=== PATIENT | female | born 1955 | race Caucasian/White ===

== ENCOUNTER 2020-07-07 11:25 | Outpatient (CLI) | payer MEDICARE, OTHER ==
--- NOTE | 2020-07-09 13:16 | Mammography Report ---
BILATERAL DIGITAL DIAGNOSTIC MAMMOGRAM 3D/2D: 07/07/2020 CLINICAL: Baseline exam. Occasional right breast pain. Baseline exam. No prior exams were available for comparison. There are scattered fibroglandular [place] ents in both breasts. No mass in the right breast in the region of intermittent pain. There are loosely grouped dystrophic appearing and punctate calcifications in the left breast at 12 o 'clock middle depth. These are seen in additional views. No other significant masses, calcifications, or other findings are seen in either breast. IMPRESSION: INCOMPLETE: NEEDS ADDITIONAL IMAGING EVALUATION 1) No mass in the right breast in the region of intermittent pain. -A targeted ultrasound is recommended and will immediately follow. 2) The grouped dystrophic punctate calcifications in the left breast are probably benign. -A follow-up mammogram in 6 months is recommended. This exam was interpreted at Station ID: [id number]. NOTE: For mammograms, a report in lay terms will be sent to the patient. Approximately 15% of breast malignancies will not be visualized mammographically. In the management of a palpable breast mass, a negative mammogram must not discourage biopsy of a clinically suspicious lesion. Electronically Signed By: Wallace Schulz M.D. slc/:07/07/2020 13:03:22 ACR BI-RADS Category 0: Incomplete 3340F PARENCHYMAL PATTERN: (A) - The breast(s) demonstrate(s) scattered fibroglandular densities. BI-RADS CATEGORY: (0) - 0 Ultrasound [id number] Immediate follow-up LATERALITY: (B)
--- NOTE | 2020-07-09 13:16 | Ultrasound Report ---
LIMITED ULTRASOUND OF RIGHT BREAST AND AXILLA: 07/07/2020 CLINICAL: Occasional right breast pain. Comparison is made to exam dated: 07/07/2020 mammogram - [facility]. Real-time ultrasound of the right breast upper outer quadrant, retroareolar, and axilla regions was p erformed. Caceres scale images of the real-time examination were reviewed. No significant abnormalities were seen sonographically in the right breast retroareolar or upper oute r quadrant in the region of intermittent pain. Patient denies pain at this time. No significant abnormalities were seen sonographically in the right axilla. IMPRESSION: PROBABLY BENIGN No sonographic evidence of malignancy. No significant findings in the regions of intermittent pain in the right breat. Exam findings were conveyed to the patient. Patient is advised to monitor for significant change. Cli nical follow-up as needed. Mammogram demonstrated probably benign calcifications in the left breast. A follow-up left mammogram in 6 months is recommended to demonstrate stability of the calcifications. This exam was interpreted at Station ID: [id number]. Electronically Signed By: Wallace Schulz M.D. slc/:07/07/2020 13:08:25 Ultrasound BI-RADS: 3 Probably benign BI-RADS CATEGORY: (3) - 3 Mammogram [id number] 6 month follow-up LATERALITY: (L)
== END 2020-07-07 11:26 | disposition home or self-care (01) ==
LOC: DI 11:25
PROVIDERS: ATTEND Physician Assistant
DX: N64.4 Mastodynia (principal)
CPT/HCPCS: 76642; 77066

== ENCOUNTER 2021-03-01 11:27 | Outpatient (CLI) | payer MEDICARE ==
--- NOTE | 2021-03-02 15:13 | Mammography Report ---
UNILATERAL LEFT DIGITAL DIAGNOSTIC MAMMOGRAM 3D/2D: 03/01/2021 CLINICAL: Patient returns for 6 month follow up on left breast for calcifications. Comparison is made to exams dated: 07/07/2020 ultrasound and 07/07/2020 mammogram - [facility]. There are scattered fibroglandular elements in left breast. There are grouped fine and dystrophic calcifications in the left breast at 12 o'clock middle depth. These are stable to even less prominent. No other significant masses or calcifications are seen in the breast. IMPRESSION: PROBABLY BENIGN The calcifications in the left breast are not significantly changed and probably benign. A follow-up mammogram with magnification views in 6 months is recommended to demonstrate stability. The patient will be due for bilateral mammograms at that same visit. Findings and recommendations were conveyed to the patient at time of exam. This exam was interpreted at Station ID: [id number]. NOTE: For mammograms, a report in lay terms will be sent to the patient. Approximately 15% of breast malignancies will not be visualized mammographically. In the management of a palpable breast mass, a negative mammogram must not discourage biopsy of a clinically suspicious lesion. Electronically Signed By: Claribel rodriguez/:03/01/2021 12:31:34 ACR BI-RADS Category 3: Probably benign 3343F PARENCHYMAL PATTERN: (A) - The breast(s) demonstrate(s) scattered fibroglandular densities. BI-RADS CATEGORY: (3) - 3 Mammogram [id number] 6 month follow-up LATERALITY: (B)
== END 2021-03-01 11:28 | disposition home or self-care (01) ==
LOC: DI 11:27
PROVIDERS: ATTEND Physician Assistant
DX: R92.8 Other abnormal and inconclusive findings on diagnostic imaging of breast (principal)

== ENCOUNTER 2022-06-19 13:35 | Outpatient (CLI) | payer MEDICARE ==
--- NOTE | 2022-06-19 17:05 | XRAY Report ---
PROCEDURE: Foot 3 View LT INDICATIONS: L HEEL PX TECHNIQUE: 3 views of the foot were acquired. COMPARISON: None FINDINGS: Bones: No fractures or dislocations. No suspicious bony lesions. Small plantar calcaneal spur pres ent Soft tissues: No tibiotalar joint effusion. Achilles tendon appears normal. IMPRESSION: Small calcaneal spur. Otherwise unremarkable. Reviewed by: John Haddad MD on 06/19/2022 4:04 PM [facility] Approved by: John Haddad MD on 06/19/2022 4:04 PM [facility] Station ID: [id number]
== END 2022-06-19 23:59 | disposition home or self-care (01) ==
LOC: DI.N 13:35
PROVIDERS: ATTEND Physician Assistant
DX: M77.32 Calcaneal spur, left foot (principal)

== ENCOUNTER 2022-09-07 10:51 | Outpatient (CLI) | payer MEDICARE ==
[2022-09-07 18:12] LABS: ALBUMIN 4.2 g/dL (3.2-5.5); ALBUMIN/GLOBULIN RATIO 1.3 (1.0-2.2); ALKALINE PHOSPHATASE 79 IU/L (42-121); ALT ALANINE AMINOTRANSFERASE 33 IU/L (10-60); AST ASPARTATE AMINOTRANSFERASE 26 IU/L (10-42); BILIRUBIN,TOTAL 0.7 mg/dL (0.2-1.0); BUN - BLOOD UREA NITROGEN 22 mg/dL (6-20); CALCIUM 9.3 mg/dL (8.5-10.3); CARBON DIOXIDE - CO2 28 mmol/L (21-32); CHLORIDE 103 mmol/L (101-111); CHOL/HDL RATIO 3.7 (<4.4); CHOLESTEROL 230 mg/dL; CREATININE 0.8 mg/dL (0.4-1.0); GFR - MDRD 71 (>89); GLUCOSE 97 mg/dL (70-100); HDL CHOLESTEROL 62 mg/dL; LDL CHOLESTEROL,CALCULATED 145 mg/dL; LDL/HDL RATIO 2.3 (<4.4); POTASSIUM 4.1 mmol/L (3.5-5.0); SODIUM 140 mmol/L (135-145); TOTAL PROTEIN 7.5 g/dL (6.7-8.2); TRIGLYCERIDES 113 mg/dL; VLDL CHOLESTEROL 23 mg/dL
[2022-09-08 04:09] LABS: HCV AB <0.1 s/co ratio (0.0-0.9)
[2022-09-08 20:39] LABS: BASOPHILS % (AUTO) 0.5 %; EOSINOPHILS # (AUTO) 0.4 10^3/uL (0.0-0.7); EOSINOPHILS % (AUTO) 5.1 %; HCT - HEMATOCRIT 41.5 % (37.0-47.0); HGB - HEMOGLOBIN 13.4 g/dL (12.0-16.0); LYMPHOCYTES # (AUTO) 2.3 10^3/uL (1.5-3.5); LYMPHOCYTES % (AUTO) 30.2 %; MEAN CORPUSCULAR HEMOGLOBIN 30.7 pg (27.0-31.0); MEAN CORPUSCULAR HGB CONC 32.3 g/dL (32.0-36.0); MEAN CORPUSCULAR VOLUME 95.2 fL (81.0-99.0); MEAN PLATELET VOLUME 10.2 fL (7.9-10.8); MONOCYTES # (AUTO) 0.6 10^3/uL (0.0-1.0); MONOCYTES % (AUTO) 7.3 %; NEUTROPHILS # (AUTO) 4.3 10^3/uL (1.5-6.6); NEUTROPHILS % (AUTO) 56.6 %; PLT - PLATELET COUNT 294 10^3/uL (130-450); RED BLOOD COUNT 4.36 10^6/uL (4.20-5.40); RED CELL DISTRIBUTION WIDTH 12.6 % (12.0-15.0); WHITE BLOOD COUNT 7.5 x10^3/uL (4.8-10.8)
== END 2022-09-07 10:52 | disposition home or self-care (01) ==
LOC: LAB.N 10:51
PROVIDERS: ATTEND Internal Medicine
DX: R10.2 Pelvic and perineal pain (principal); R03.0 Elevated blood-pressure reading, without diagnosis of hypertension; Z11.59 Encounter for screening for other viral diseases; Z13.6 Encounter for screening for cardiovascular disorders
CPT/HCPCS: 36415; 80053; 80061; 83721; 84443; 85025; 86803

== ENCOUNTER 2022-09-15 14:32 | Outpatient (CLI) | payer MEDICARE ==
[2022-09-15] MEDS ORDERED: iohexoL-300 100 ML VIAL ONE (14:45)
[2022-09-15] MEDS ORDERED: DIATRIZOATE MEGLU/DIATRIZO SOD 30 ML BOTTLE PO ONE ×2 (14:45→19:16)
[2022-09-15] MEDS ORDERED: iohexoL-300 100 ML VIAL IVP ONE (19:16)
--- NOTE | 2022-09-15 20:34 | CT Report ---
PROCEDURE: ABDOMEN/PELVIS W INDICATIONS: PELVIC PAIN CONTRAST: 100ml omni 300 TECHNIQUE: After the administration of IV and oral contrast, 5 mm thick sections acquired from the diaphragms to the symphysis. 5 mm thick coronal and sagittal reformats were acquired. For radiation dose reducti on, the following was used: automated exposure control, adjustment of mA and/or kV according to amanuel ent size. COMPARISON: None FINDINGS: Image quality: Good Lower chest: Basal atelectasis/scarring. No hiatal hernia. Solid organs: Possible hepatic steatosis. Gallbladder is unremarkable. No pathologic dilation of bili casimiro tree or pancreatic duct. No splenomegaly. No adrenal nodules. No hydronephrosis. Vessels and lymph nodes: No abdominal aortic aneurysm. No pathologic adenopathy by size criteria. Bowel and peritoneum: No small bowel obstruction or pathologic ascites. There are colonic diverticula . Mild wall thickening of the sigmoid colon. Body wall: Small fat-containing umbilical hernia. Pelvis: Hysterectomy. Bones: No acute or suspicious osseous abnormality. There are degenerative changes. IMPRESSION: Questionable trace wall thickening of the sigmoid colon could represent colitis or resolving divertic ulitis. Colonic diverticulosis is also present. Consider correlation with age-appropriate colonoscopy results. No acute abdominopelvic pathology. Other findings as above. Reviewed by: Reginaldo Sexton MD on 09/15/2022 8:33 PM PST Approved by: Reginaldo Sexton MD on 09/15/2022 8:33 PM PST Station ID: [id number]
== END 2022-09-15 14:33 | disposition home or self-care (01) ==
LOC: DI 14:32
PROVIDERS: ATTEND Internal Medicine
DX: R10.2 Pelvic and perineal pain (principal); K57.30 Diverticulosis of large intestine without perforation or abscess without bleeding; Z79.899 Other long term (current) drug therapy
CPT/HCPCS: 74177; Q9963; Q9967

== ENCOUNTER 2022-11-20 06:18 | Day surgery (SDC) | payer MEDICARE ==
[2022-11-20] MEDS ORDERED: LACTATED RINGERS 1,000 ML IV ONE ×2 (06:48→08:17)
--- NOTE | 2022-11-20 07:17 | ANESTHESIA ---
Pre-Anesthesia VS, & Labs - Diagnosis screening - Procedure colonoscopy Vital Signs: Temp Pulse Resp BP Pulse Ox O2 Flow Rate 36.1 C L 74 16 138/81 H 96 11/20/22 06:35 11/20/22 06:35 11/20/22 06:35 11/20/22 06:35 11/20/22 06:35 Height: 5 ft 10 in Weight (kg): 98.9 kg Body Mass Index: 31.2 BMI Classification: Obese - NPO >8 hours - Is Patient ?: No - Lab Results Lab results reviewed: Yes Home Medications and Allergies Home Medications: Ambulatory Orders Multivitamin 1 each PO DAILY 11/17/22 Multivitamin 1 each PO DAILY 11/17/22 Allergies/Adverse Reactions: Allergies Allergy/AdvReac Type Severity Reaction Status Date / Time naproxen [From Naprosyn] Allergy Hives Verified 11/17/22 13:49 Anes History & Medical History - Anesthetic History Anesthesia Complications: reports: No previous complications Family history of Anesthesia Complications: Denies Family history of Malignant Hyperthermia: Denies - Medical History Cardiovascular: reports: None Pulmonary: reports: None Gastrointestinal: reports: Diverticulitis Urinary: reports: None Musculoskeletal: reports: None Endocrine/Autoimmune: reports: None Skin: reports: None - Surgical History General: reports: Appendectomy, Colonoscopy Gynecologic: reports: Hysterectomy Exam General: Alert, Oriented x3, Cooperative Dental: WNL Mouth Opening: Greater than 4 Fingerbreadths Neck Mobility: Normal Mallampati classification: I Thyromental Distance: 4-6 cm Respiratory: Lungs clear, Normal breath sounds, No respiratory distress Cardiovascular: Regular rate Neurological: Normal speech Mental/Cognitive Status: Alert/Oriented X3, Normal for patient Cognitive Status: Within normal limits Plan Anesthesia Type: Total IV Consent for Procedure(s) Verified and Reviewed: Yes Code Status: Attempt Resuscitation ASA classification: 2-Mild systemic disease Is this case an emergency?: No
[2022-11-20] MEDS ORDERED: PROPOFOL 500 MG/50 ML 500 MG/50 ML VIAL ONE (07:40)
[2022-11-20] MEDS ORDERED: PROPOFOL 200 MG/20 ML VIAL IVP ONE (07:40)
[2022-11-20 08:54] VITALS: BP 122/80
--- NOTE | 2022-11-20 09:03 | ANESTHESIA POST OP EVALUATION ---
Anesthesia Post Eval - Post Anesthesia Eval Vitals: Last Vital Signs Temp 36.6 C 11/20/22 08:50 Pulse 63 11/20/22 08:50 Resp 16 11/20/22 08:50 BP 122/80 11/20/22 08:50 Pulse Ox 98 11/20/22 08:50 O2 Flow Rate CV Function Including HR & BP: Stable Pain Control: Satisfactory Nausea & Vomiting: Negative Mental Status: Baseline Respiratory Status: Airway Patent Hydration Status: Satisfactory Anesthesia Complications: None
== END 2022-11-20 06:19 | disposition home or self-care (01) ==
LOC: SDS 06:18
PROVIDERS: ATTEND Surgery
PROC: 0DBL8ZZ Excision of Transverse Colon, Via Natural or Artificial Opening Endoscopic (ICD-10-PCS; principal; 2022-11-20 07:30)
DX: Z12.11 Encounter for screening for malignant neoplasm of colon (principal); Z87.19 Personal history of other diseases of the digestive system; K57.30 Diverticulosis of large intestine without perforation or abscess without bleeding; K63.5 Polyp of colon; E66.9 Obesity, unspecified; Z68.31 Body mass index [BMI] 31.0-31.9, adult
CPT/HCPCS: 45380; J7120

== ENCOUNTER 2023-04-27 10:48 | Outpatient (CLI) | payer MEDICARE ==
--- NOTE | 2023-04-30 15:54 | Mammography Report ---
BILATERAL DIGITAL DIAGNOSTIC MAMMOGRAM 3D/2D WITH MAGNIFICATION: 04/27/2023 CLINICAL: Patient returns for 6 month follow up on left breast for calcifications. Intermittent diffu se pain in right breast. Comparison is made to exams dated: 03/01/2021 mammogram and 07/07/2020 mammogram - [facility]. There are scattered areas of fibroglandular density in both breasts (category b / 25%-50% glandular t issue). Redemonstration of previously described grouped fine dystrophic calcifications in the left breast at 12 o'clock middle depth. These are not significantly changed. No other significant masses, calcifications, or other findings are seen in either breast. IMPRESSION: PROBABLY BENIGN The stable grouped fine dystrophic calcifications in the left breast are probably benign. There is no abnormality seen in the right breast to correspond with the area of clinical concern desc ribed as diffuse pain, however, recommend clinical follow up for persistent or worsening symptoms, or development of any clinically suspicious findings. A follow-up left mammogram in 6 months is recommended to demonstrate stability of the probably benign calcifications. Findings and recommendations were conveyed to the patient during today's evaluation. Based on the Tyrer Cuzick model (a risk assessment model) the patients lifetime risk is 4.7% and her 10 year risk is 2.6%. According to the ACR, ACS, and NCCN guidelines, an annual breast MRI exam aldo g with mammogram is recommended if the patients lifetime risk is 20% or greater. This exam was interpreted at Station ID: [id number]. NOTE: For mammograms, a report in lay terms will be sent to the patient. Approximately 15% of breast malignancies will not be visualized mammographically. In the management of a palpable breast mass, a negative mammogram must not discourage biopsy of a clinically suspicious lesion. Electronically Signed By: Bucky Blanchard M.D. aty/:04/27/2023 12:27:39 ACR BI-RADS Category 3: Probably benign 3343F PARENCHYMAL PATTERN: (A) - The breast(s) demonstrate(s) scattered fibroglandular densities. BI-RADS CATEGORY: (3) - 3 Mammogram [id number] 6 month follow-up LATERALITY: (L)
== END 2023-04-27 10:49 | disposition home or self-care (01) ==
LOC: DI 10:48
PROVIDERS: ATTEND Internal Medicine
DX: R92.1 Mammographic calcification found on diagnostic imaging of breast (principal)

== ENCOUNTER 2023-06-07 08:00 | Outpatient (CLI) | payer MEDICARE | END 2023-06-07 23:59 | disposition home or self-care (01) | LOC: LAB.N 08:00 | PROVIDERS: ATTEND Registered Nurse | DX: R30.0 Dysuria (principal) | CPT/HCPCS: 87086 ==

== ENCOUNTER 2023-09-05 14:29 | Outpatient (CLI) | payer MEDICARE ==
--- NOTE | 2023-09-05 17:29 | XRAY Report ---
PROCEDURE: Lumbar Spine 2-3V INDICATIONS: LOW BACK PAIN TECHNIQUE: 3 views of the lumbar spine were acquired. COMPARISON: None. FINDINGS: Bones: 5 [id number] vertebrae are present. There is mild rightward curvature of lumbar spine w ith apex at L3 level. Loss of disc height and degenerative endplate changes are noted throughout lumb ar spine more notably at L3-4 through L5-S1 levels. No vertebral body compression fractures. No jamaal picious bony lesions. Soft tissues: Overlying bowel gas pattern is normal. No suspicious soft tissue calcifications. IMPRESSION: Mild scoliosis. No acute compression fracture or spondylolisthesis. Mild to moderate degenerative dis c disease throughout lumbar spine. Reviewed by: Tre Haynes MD on 09/05/2023 5:28 PM PST Approved by: Tre Haynes MD on 09/05/2023 5:28 PM PST Station ID: [id number]
== END 2023-09-05 14:30 | disposition home or self-care (01) ==
LOC: DI 14:29
PROVIDERS: ATTEND Physician Assistant Medical
DX: M51.36 Other intervertebral disc degeneration, lumbar region (principal)

== ENCOUNTER 2023-10-22 10:48 | Outpatient (CLI) | payer MEDICARE ==
[2023-10-22 17:44] LABS: BASOPHILS % (AUTO) 0.7 %; EOSINOPHILS # (AUTO) 0.3 10^3/uL (0.0-0.7); EOSINOPHILS % (AUTO) 4.8 %; HCT - HEMATOCRIT 45.6 % (37.0-47.0); HGB - HEMOGLOBIN 14.4 g/dL (12.0-16.0); LYMPHOCYTES # (AUTO) 2.1 10^3/uL (1.5-3.5); LYMPHOCYTES % (AUTO) 36.5 %; MEAN CORPUSCULAR HEMOGLOBIN 30.6 pg (27.0-31.0); MEAN CORPUSCULAR HGB CONC 31.6 g/dL (32.0-36.0); MEAN CORPUSCULAR VOLUME 96.8 fL (81.0-99.0); MEAN PLATELET VOLUME 10.1 fL (7.9-10.8); MONOCYTES # (AUTO) 0.5 10^3/uL (0.0-1.0); NEUTROPHILS # (AUTO) 2.8 10^3/uL (1.5-6.6); PLT - PLATELET COUNT 332 10^3/uL (130-450); RED BLOOD COUNT 4.71 10^6/uL (4.20-5.40); RED CELL DISTRIBUTION WIDTH 12.2 % (12.0-15.0); WHITE BLOOD COUNT 5.7 x10^3/uL (4.8-10.8)
[2023-10-22 18:09] LABS: ALBUMIN 4.4 g/dL (3.2-5.5); ALBUMIN/GLOBULIN RATIO 1.6 (1.0-2.2); ALKALINE PHOSPHATASE 88 IU/L (42-121); ALT ALANINE AMINOTRANSFERASE 28 IU/L (10-60); AST ASPARTATE AMINOTRANSFERASE 22 IU/L (10-42); BILIRUBIN,TOTAL 0.5 mg/dL (0.2-1.0); BUN - BLOOD UREA NITROGEN 21 mg/dL (6-20); CARBON DIOXIDE - CO2 30 mmol/L (21-32); CHLORIDE 104 mmol/L (101-111); CHOL/HDL RATIO 4.2 (<4.4); CHOLESTEROL 243 mg/dL; CREATININE 0.9 mg/dL (0.6-1.3); GFR - MDRD 62 (>89); GLUCOSE 100 mg/dL (74-104); HDL CHOLESTEROL 58 mg/dL; LDL CHOLESTEROL,CALCULATED 160 mg/dL; LDL/HDL RATIO 2.8 (<4.4); POTASSIUM 4.1 mmol/L (3.5-4.5); SODIUM 139 mmol/L (135-145); TOTAL PROTEIN 7.2 g/dL (6.4-8.9); TRIGLYCERIDES 127 mg/dL (48-352); VLDL CHOLESTEROL 25 mg/dL
[2023-10-22 18:19] LABS: THYROID STIMULATING HORMONE 1.94 uIU/mL (0.34-5.60)
== END 2023-10-22 10:49 | disposition home or self-care (01) ==
LOC: LAB.N 10:48
PROVIDERS: ATTEND Physician Assistant Medical
DX: E78.5 Hyperlipidemia, unspecified (principal); R53.83 Other fatigue; J30.9 Allergic rhinitis, unspecified
CPT/HCPCS: 36415; 80053; 80061; 83721; 84443; 85025

== ENCOUNTER 2023-11-29 12:18 | Outpatient (CLI) | payer MEDICARE ==
--- NOTE | 2023-11-30 09:42 | Mammography Report ---
BILATERAL DIGITAL DIAGNOSTIC MAMMOGRAM 3D/2D WITH MAGNIFICATION: 11/29/2023 CLINICAL: Patient returns for a 6 month follow up of the left breast. Diffuse right breast pain. Comparison is made to exams dated: 04/27/2023 mammogram, 03/01/2021 mammogram, and 07/07/2020 mammogra m - [facility]. There are scattered areas of fibroglandular density in both breasts (category b / 25%-50% glandular t issue). There are grouped dystrophic calcifications in the left breast at 12 o'clock middle depth, stable sin ce February 2021. Of note, patient is asymptomatic at time of exam, therefore no BB marker was placed in the right [address]. No other significant masses, calcifications, or other findings are seen in either breast. IMPRESSION: BENIGN Left breast grouped dystrophic calcifications at 12 o'clock middle depth, stable since February 2021. Gi syeda this finding has demonstrated over two years of stability, it is consistent with a benign process . No mammographic evidence of malignancy. A 1 year screening mammogram is recommended. Patient is asymptomatic at time of exam, therefore no right breast ultrasound was performed. Diffuse, non-focal symptoms, such as pain or fullness are typically benign. Clinical follow-up is recommended , and further management of these symptoms should be based on the results of clinical evaluation. If diffuse symptoms persist or become more focal in nature, further clinical evaluation should be consid ered. Findings and recommendations were conveyed to the patient during today's evaluation. Based on the Tyrer Cuzick model (a risk assessment model) the patient's lifetime risk is 4.5% and her 10 year risk is 2.6%. According to the ACR, ACS, and NCCN guidelines, an annual breast MRI exam aldo g with mammogram is recommended if the patient's lifetime risk is 20% or greater. This exam was interpreted at Station ID: [id number]. NOTE: For mammograms, a report in lay terms will be sent to the patient. Approximately 15% of breast malignancies will not be visualized mammographically. In the management of a palpable breast mass, a negative mammogram must not discourage biopsy of a clinically suspicious lesion. Electronically Signed By: Nabila Koch M.D., Ph.D. eb/:11/29/2023 13:34:17 ACR BI-RADS Category 2: Benign Finding(s) 3342F PARENCHYMAL PATTERN: (A) - The breast(s) demonstrate(s) scattered fibroglandular densities. BI-RADS CATEGORY: (2) - 2 RECOMMENDATION: (ANNUAL) - Recommend routine annual screening mammography. [id number] 1 year screening LATERALITY: (B)
== END 2023-11-29 12:19 | disposition home or self-care (01) ==
LOC: DI 12:18
PROVIDERS: ATTEND Physician Assistant Medical
DX: N64.4 Mastodynia (principal); R92.323 Mammographic fibroglandular density, bilateral breasts; R92.1 Mammographic calcification found on diagnostic imaging of breast

== ENCOUNTER 2024-02-01 11:50 | Outpatient (CLI) | payer MEDICARE | END 2024-02-01 16:15 | disposition home or self-care (01) | LOC: LAB.N 11:50 | PROVIDERS: ATTEND Physician Assistant Medical | DX: L03.031 Cellulitis of right toe (principal) | CPT/HCPCS: 87070; 87205 ==